=== PATIENT | female | born 1980 | race Caucasian/White ===

== ENCOUNTER 2016-08-10 10:00 | Inpatient (IN) | payer OTHER ==
[~2016-08-10] VITALS: Ht 165.1 cm; Wt 83.2 kg
--- NOTE | ~2016-08-10 | DS ---
PATIENT'S NAME: JAMES ISAAC [facility] AGE: 35 Y [address] ROOM: [place] [address] LOCATION: [facility] [place] ADMIT DATE: 08/15/2016 Discharge Summary DISCHARGE DATE: 08/17/2016 FAMILY PHYSICIAN: Kerri Coyle PA-C ATTENDING PHYSICIAN: Ray Batista ADMISSION DIAGNOSES: 1. Right atrophic kidney. 2. Recurrent urinary tract infection. 3. Right nephrolithiasis. POSTOPERATIVE DIAGNOSES: 1. Right atrophic kidney. 2. Recurrent urinary tract infection. 3. Right nephrolithiasis. REASON FOR HOSPITALIZATION: The patient is a pleasant 35-year-old female with history of recurrent right nephrolithiasis, for which she underwent a right pelviolithotomy for a large right renal pelvis stone on October 15, [address] Alvares. Since then, she underwent multiple treatments for recurrent nephrolithiasis, one of which by Dr. Alvares, but also several by Dr. Gibson and Dr. Mccracken. She has continued to have difficulty with recurrent urinary tract infection. Most recent CT scan revealed an atrophic right kidney and we also had her undergo renal scans, which demonstrated only limited function to that right-sided kidney. The patient was explained the risks, benefits, indications, and wished to proceed with surgery. PROCEDURES PERFORMED: Right hand assisted laparoscopic nephrectomy. HOSPITAL COURSE: The patient was admitted on the above date and underwent the above-stated procedure without complication. Her hospital course was relatively uneventful. Prior to discharge home, she was tolerating regular diet and passing flatus. Also her pain is well controlled on oral pain medications prior to her discharge home. CONDITION OF PATIENT ON DISCHARGE: Good. DISCHARGE INSTRUCTIONS: The patient received routine discharge instructions for a right hand-assisted laparoscopic nephrectomy. RAY BATISTA MD PATIENT'S NAME: JAMES ISAAC [facility] AGE: 35 Y [address] ROOM: [place] [address] LOCATION: [facility] [place] ADMIT DATE: 08/15/2016 Discharge Summary DISCHARGE DATE: 08/17/2016 FAMILY PHYSICIAN: Kerri Coyle PA-C ATTENDING PHYSICIAN: Ray Batista/prabhal /[id number] d: 08/27/16 0001 t: 08/27/16 1029, DISCHARGE SUMMARY
--- NOTE | ~2016-08-10 | OR ---
PATIENT'S NAME: JAMES ISAAC [facility] AGE: 35 Y [address] ROOM: [place] [address] [place] [facility] [place]: 08/15/2016 OR/Procedure Report DISCHARGE DATE: FAMILY PHYSICIAN: Kerri Coyle PA-C ATTENDING PHYSICIAN: RAY BATISTA SURGEON: Ray Batista MD CONTROL ENGINEER: Cesar Sorenson MD. DATE OF PROCEDURE: 08/15/2016 PREOPERATIVE DIAGNOSES: 1. Right atrophic kidney. 2. Recurrent urinary tract infection. 3. Right nephrolithiasis. POSTOPERATIVE DIAGNOSES: 1. Right atrophic kidney. 2. Recurrent urinary tract infection. 3. Right nephrolithiasis. OPERATIVE PROCEDURES: Right hand-assisted laparoscopic nephrectomy. INDICATIONS FOR PROCEDURE: The patient is a pleasant 35-year-old female with history of recurrent right nephrolithiasis for which she had underwent a right ileal lithotomy for a large right renal pelvis stone on October 15, 2012, by Dr. Alvares. Since then, she has underwent multiple extracorporeal shockwave lithotripsies by Dr. Alvares, but also by Dr. Gibson in [place]. She has continued to have difficulty with recurrent urinary tract infection. Most recent CT scan revealed an atrophic right kidney and a renal scan was performed which demonstrated only limited function to that atrophic kidney. The patient was explained the risks, benefits, indications, and alternatives to the above procedure and wished to proceed and consented freely. ANESTHESIA ADMINISTERED: General endotracheal anesthesia. DESCRIPTION OF OPERATION: The patient was brought back to the operating room, where she was placed on the OR table in the supine position. A surgical time- out was called where patient identification, surgical site, and procedure was then verified. We also did verify that the patient received an IV Levaquin antibiotic within an hour of beginning the procedure. After undergoing general anesthesia, the patient was then moved and placed into a modified right flank position after a Crawford catheter had been placed into her urinary bladder which was left to gravity drainage. The patient was then prepped and draped in the usual sterile fashion. I then made a right lower quadrant incision and deepened this incision until I identified the fascia. I was able to enter the peritoneum sharply. We then placed the GelPort assist device PATIENT'S NAME: JAMES ISAAC [facility] AGE: 35 Y [address] ROOM: [id number] [place], [place] [address] [place] [facility] [place]: 08/15/2016 OR/Procedure Report DISCHARGE DATE: FAMILY PHYSICIAN: Kerri Coyle PA-C ATTENDING PHYSICIAN: RAY BATISTA into this area and insufflated the abdomen. We placed a 12 mm trocar just lateral to her umbilicus and a five 5 mm trocar in the right epigastrium. We placed an additional 5 mm trocar just superior to the other 5 mm trocar which was used for the liver retractor. The ports were entered under direct vision and there was no gross abnormalities detected upon surveying her abdomen. Each port had been placed atraumatically. I began by Kocherizing the duodenum and continuing in this plane until I was easily able to identify the inferior vena cava. I then continued along this plane and identified the right gonadal vessel which was spared and then was able to identify her right ureter. Of note, there was some fibrotic reaction around her ureter leading up to her renal pelvis. I still was able to get underneath this ureter and continue along this plane after identifying the psoas muscle. I identified a single renal artery and single renal vein. I then used the laparoscopic vascular stapler to divide the renal artery and vein. I did completely mobilized the kidney, and this was an adrenal-sparing approach. I then divided the ureter. After completely freeing up the kidney, the kidney was removed through the GelPort and sent for pathologic analysis. I inspected for hemostasis, which was excellent. The 12 mm port site was then closed with a Salvador-Paulo closing device. We then closed the fascia in layers using 0 PDS suture. The subcutaneous area was then reapproximated with a Vicryl suture. All wounds had been irrigated and infiltrated with 0.25% Marcaine local anesthetic. The skin incisions were closed with subcuticular 4-0 Monocryl suture. The wounds were then covered with Dermabond. The patient was then taken out of the left lateral position where she was then extubated without event, transferred to the recovery bed and transported to the recovery room in good condition. The patient did tolerate the procedure very well. COMPLICATIONS: None. ESTIMATED BLOOD LOSS: 25 mL. DRAINS: Indwelling Crawford catheter to gravity drainage. FOLLOWUP PLAN: We will plan to admit the patient overnight for observation with likely discharge home on postoperative day #2. RAY BATISTA MD GP/sweta /[id number] PATIENT'S NAME: JAMES ISAAC [facility] AGE: 35 Y [address] ROOM: [place] [address] [place] [facility] [place]: 08/15/2016 OR/Procedure Report DISCHARGE DATE: FAMILY PHYSICIAN: Kerri Coyle PA-C ATTENDING PHYSICIAN: RAY BATISTA CC: JULIA Moore PA-C d: 08/15/16 1051 t: 08/16/16 1050, OPERATIVE SUMMARY
[~2016-08-10 10:00] MED LIST: PERCOCET 5-3251 EACH PO; PRENATAL 1+1)(P1 TAB PO; TUMS200 MG PO
[2016-08-11] MEDS ORDERED: WELLBUTRIN XL300 M1 PO (11:41)
[2016-08-11] MEDS ORDERED: TRI-LINYAH TAB1 EACH PO (11:42)
[2016-08-11] MEDS ORDERED: HYDROCODON-ACE1 EAC4 PO (11:43)
[2016-08-11] MEDS ORDERED: BACTRIM DS1 TAB PO (11:44)
[2016-08-15] MEDS ORDERED: ZOFRAN ODT4 MG PO (06:07)
--- NOTE | 2016-08-15 17:32 | NUR ---
Significant Event: Patient arrived from the PACU around 1130. Right hand assisted lap R)nephrectomy. 3 lap sites and 1 lower right abdominal incision. Skin glue, all are clean, dry and intact. Crawford catheter in place, good urine output. Arrived to the floor with an epidural- patient rated her pain at a 5. Pain steadily increased- order obtained to use an aqua k pad for the pain. Patient has minimal relief with this. Around 1400 I noticed that the epidural bag had the same amount of volume that it did when it came to the floor, therefore it appeared that the patient had not been getting pain medication possibly. I checked the site, it was all intact, as it was when she arrived to the floor. The pump was working properly and no kinks were found. Dr. Douglas was notified and he called Kiersten in the PACU, she came to the floor and assessed with Tania HYDE. She then notified Ita Barfield who came to the floor and assessed the situation. Bolus was given directly into the epidural by Ita when she came to the floor. Then we both assessed and found that the clip holding the tubing in place attached on the CADD pump was not all the way intact, but it had not alarmed. Fixed by Ita. Patient then had relief about an hour after. Settings are 09/21/09, Fentanyl with ropivicaine. Clear liquids- ADAT. Crawford cath in. Order is to ambulate 5x a day- but difficult with epdiural. Iv fluids infusing. Family in and out of the room. Cooperative with cares.
--- NOTE | 2016-08-15 20:17 | NUR ---
Patient had home medication at bedside and took it around 1800 stating her call light wasn't being answered so she took her own PO zofran. Education was given to the patient by primary nurse that medication is not allowed at the bedside and two options were given to the patient. #1) the could take medication home so it was not at the bedside, and #2) we could place the medication in our safe so nothing would happen to it and give it back to her upon discharge. Patient and agreed that would take it home.
--- NOTE | 2016-08-16 00:08 | NUR ---
Noticed it was getting later in the night, asked pt when her was going to come back and take their 3 children home. Pt informed me that is gone for the night and cannot come back and assumed that they would be able to stay because her oldest is 17. Educated patient on why childred cannot stay the night without another adult in the room to be their primary caregiver. Pt stated no one was able to come get them tonight. More education given about safety issues and hospital policy. Since no one is able to come get the children tonight they are staying in the patient's room for the night. 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 Instructed pt that her children can be in the room as long as another adult is in the room. Educated patient that she just had a fresh surgery and has an epidural and that it is a safey issue for children and pt. Pt then asking if children could stay with niece tomorrow night. Instructed patient no, that this is a safety concern. Patient very tearful and frustrated throughout this conversation. Pt doesn't seem to understand why children cannot stay the night without another adult present, pt seems very frustrated. Will ask [facility] director to stop in and address this issue with the patient in the morning.
[2016-08-16 04:36] LABS: BASOPHIL % 0.3 %; EOSINOPHIL # 0.1 K/uL (0.0-0.5); EOSINOPHIL % 0.7 %; HEMATOCRIT 35.8 % (33.0-46.0); HEMOGLOBIN 11.8 g/dL (11.0-15.0); IMMATURE GRANULOCYTE # 0.1 K/uL (0.0-0.3); IMMATURE GRANULOCYTE % 0.5 %; LYMPHOCYTE # 1.6 K/uL (0.8-4.0); LYMPHOCYTE % 15.5 %; MCH 31.2 pg (27.0-34.0); MCV 94.7 fl (83.0-98.0); MONOCYTE # 0.7 K/uL (0.0-1.0); MONOCYTE % 7.1 %; MPV 10.7 fl (9.4-12.4); NEUTROPHIL # (ANC) 7.8 K/uL (1.8-7.8); NEUTROPHIL % 75.9 %; NRBC % 0 /100WBC (0-0.00); PLATELET COUNT 211 K/uL (150-450); RBC 3.78 M/uL (3.50-5.50); RDW-CV 12.4 % (11.9-14.6); WBC 10.2 K/uL (4.0-11.0)
[2016-08-16 04:57] LABS: CALCIUM 7.7 mg/dL (8.5-10.5); CREATININE 1.2 mg/dL (0.5-1.1)
--- NOTE | 2016-08-16 08:50 | NUR ---
SIGNIFICANT EVENT: VSS. FENTANYL EPIDURAL 8:3:10. IV R) H RUNNING D51/2 NS @120ML/HR. Q4HR VITALS. 1 PERSON ASSIST AND WALK 5 TIMES PER DAY. WALKED 2 TIMES IN RIOS OVER NIGHT. LAP SITES X3 AND 1 ABD ALL WITH SKIN GLUE. CLEAN, DRY AND INTACT.
--- NOTE | 2016-08-16 14:53 | NUR ---
A - PT SCREENED D/T MST. S/P R) NEPHRECTOMY 08/15. PT REPORTED UBW OF 191# WHICH MAINTAIN FOR A WHILE VS CBW OF 183#. REPORTED 7# WT LOSS IN A MONTH. NOT ABLE TO PERFORM NFPE DUE TO INTERRUPTION BY RN VISIT. HT: 165.10 CM, WT: 183#, BMI: 30.4, IBW: 56.8 KG, %IBW: 146% LABS: GLU 111, CREA 1.8 MEDS: NUBAIN, ZOFRAN DIET: REGULAR. INTAKE 25% X1 MEAL NOTED. PT REPORTED POOR APPETITE DUE TO DEALING W/ KIDNEY INFECTION RECENTLY. CANNOT TOLERATE BIG AMOUNT OF FOOD AT A TIME, USUALLY SNACK IN BETWEEN MEALS. EST NEEDS: [id number] KCAL (25-30 KCAL/KG IBW), 57-68 GRAMS PROTEIN (1-1.2 GRAMS/KG IBW), FLUID NEEDS: 1ML/KCAL D - INADEQUATE ORAL INTAKE RELATED TO DECREASED APPETITE EVIDENCED BY 7# WEIGHT LOSS IN A MONTH PER PT. I - PT AGREED TO TRY HIGH PROTEIN SNACK TID. M/E - GOAL: PT WILL BE ABLE TO TOLERATE >50% OF MEALS AND AT LEAST ONE SNACK PER DAY IN 3-5 DAYS.
--- NOTE | 2016-08-16 16:00 | NUR ---
SPOKE TO PATIENT REGARDING CM AND OUR ROLE. PATIENT IS ANTICIPATING THAT SHE WILL BE DISCHARGE HOME TOMORROW. HER SPOUSE HAS TAKEN 5 DAYS OFF OF WORK AND WILL BE AT HOME TO HELP HER AND SHE ALSO HAS FAMILY THAT LIVE NEAR BY WHO WILL HELP HER.SHE DOES NOT ANTICPATE ANY DISCHARGE NEEDS AT THIS TIME.
--- NOTE | 2016-08-16 18:07 | NUR ---
Significant Event:A/O X 3. Ambulates in the vick with SBA. NSR. SBP 120, HR 70's. Remains on room air with ETCO2 to off at 1830. Lungs clear. Vomited x 1 @ 1615, zofran given with relief at 1623. Tolerating PO nutrition and fluids, dietary consult here to see and agrees to offer frequent snacks. Passing flatus, no BM today. Bag bath given. Bandaid to Epidural site on back. Anesthesia removed epidural cath @ 1708. IVF infusing. Douglas patent. here this AM and takes home. 3 minor chilren here all day and walk around the campus when bored. Director and charge nurse discussed need to send minors home at night, patient agreed. Last [place] @ 1500. Follow up:OK to consider pulling douglas in AM.
--- NOTE | 2016-08-16 18:25 | NUR ---
D: I have reivewed and agree with charting completed by SHANELLE aGines.
--- NOTE | 2016-08-17 04:07 | NUR ---
Pt. alert and oriented. RA. VSS. Crawford out at 0500. IV L) out at midnight due to pt. c/o hurting. IV R) Hand with fluids. Pt. not tolerating foods well as emesis at HS and zofran given. Could not eat supper. IV morphine x2 given for pain while pt was nauseated. PO pain pill 1 tab given at 0030. 1 assist. Pt. currently menstrating. Tele - no calls. 3 lap sites with glue intact. Possible d/c today more likely depends on tolerating foods well enough. Slept well through night.
[2016-08-17] MEDS ORDERED: COLACE100 MG PO (14:28)
== END 2016-08-17 16:11 | disposition disaster alternative care site (69) | DRG 661 ==
LOC: GMSU 08-15 05:37 → G3N 08-15 05:37 → GMSU 08-17 16:11
PROVIDERS: ADMIT Urology
PROC: 0TT04ZZ Resection of Right Kidney, Percutaneous Endoscopic Approach (ICD-10-PCS; principal; 2016-08-15)
DX: N26.1 Atrophy of kidney (terminal) (principal); Z87.442 Personal history of urinary calculi; Z87.440 Personal history of urinary (tract) infections
CPT/HCPCS: J1170; J1956; J2001; J2250; J2270; J2405; J3010; J7030